=== PATIENT | female | born 1930 | race African-American/Black ===

== ENCOUNTER 2018-05-24 12:50 | Inpatient (IN) | payer MEDICARE ==
[2018-05-24 13:59] LABS: Hemoglobin 10.9 g/dL (12.0-16.0); Mean Corpuscular HGB CONC 30.3 g/dL (32.0-36.0); Mean Corpuscular Volume 69.3 fL (78.0-98.0); Mean Platelet Volume 8.6 fL (7.4-10.4); Platelet Count 656 thou/uL (130-400); RBC Distribution Width 16.4 % (11.5-14.5); Red Blood Cell (RBC) Count 5.22 mill/uL (4.20-5.40); White Blood Cell (WBC) Count 20.1 thou/uL (4.8-10.8)
[2018-05-24 14:21] LABS: ALT (SGPT) 13 U/L (8-55); AST (SGOT) 27 U/L (5-34); Albumin 2.7 g/dL (3.4-4.8); Alkaline Phosphatase 88 U/L (40-150); Anion Gap 14 mmol/L (10-20); BUN (Urea Nitrogen) 27 mg/dL (9.8-20.1); Bilirubin, Total 0.6 mg/dL (0.2-1.2); Calc. Creatinine Clearance 0 mL/min (70-130); Calcium 10.8 mg/dL (7.8-10.44); Carbon Dioxide 27 mmol/L (23-31); Chloride 105 mmol/L (98-107); Estimated GFR-MDRD 67; Globulin 5.8 g/dL (2.4-3.5); Glucose 103 mg/dL (83-110); Potassium 4.3 mmol/L (3.5-5.1); Protein, Total 8.5 g/dL (6.0-8.3); Sodium 142 mmol/L (136-145)
[2018-05-24 14:24] LABS: Anisocytosis SLIGHT = 6-15 cells (100X) (0-5/hpf); Band 2 % (5-11); Eosinophils 4 % (0-10); Hypochromia SLIGHT = 6-15 cells (100X) (0-5/hpf); Lymphocytes 28 % (21-51); MDiff Complete? YES; Microcytosis SLIGHT = 6-15 cells (100X) (0-5/hpf); Monocytes 12 % (0-10); Neutrophil 52 % (42-75); Ovalocytes SLIGHT = 2-5 cells (100X) (0-1/hpf); Platelet Morphology Comment Appears Increased; Polychromasia SLIGHT = 2-3 cells (100X) (0-2/hpf); Reactive Lymphocytes 1 % (0-10); Schistocytes SLIGHT = 2-5 cells (100X) (0-1/hpf); Target Cells SLIGHT = 2-5 cells (100X) (0-1/hpf)
--- NOTE | 2018-05-24 14:30 | RAD ---
CHEST ONE VIEW: Comparison: 08-21-14 History: Weakness, decreased appetite. FINDINGS: Slight elongation of the aorta. Normal cardiac silhouette. The pulmonary vessels and hilum are normal . Costophrenic angles are clear. Hyperinflation, with chronic changes. No masses or consolidation. No pneumothorax. Old posterior right 6th rib fracture. IMPRESSION: 1. Hyperinflation. Chronic changes. 2. No acute cardiopulmonary process. POS: [facility]
[2018-05-24 14:54] LABS: Bilirubin Negative (Negative); Blood, Urine Trace (Negative); Clarity TURBID (Clear); Glucose, Urine (Dipstick) Negative (Negative); Leukocyte Large (Negative); Nitrite Positive (Negative); Protein, Urine (Dipstick) 30 mg/dL (Neg-Trace); Specific Gravity, Urine 1.011 (1.002-1.036)
[2018-05-24 14:57] LABS: Bacteria/HPF 3+ HPF (None Seen); Hyaline Casts/LPF 0-3 HYALINE CAST LPF (0-3 Hyaline); Pathc Cast-AUWi Flag 1.01 (0-2.49); RBC/HPF 0-3 HPF (0-3); Squamous Epithelial 0-3 HPF (0-3); Yeast-AUWi Flag 7.4 (0-25.0)
[2018-05-24] MEDS ORDERED: cefTRIAXone\\ROCEPHIN 2 GM VIAL ONE (16:51)
[2018-05-24] MEDS ORDERED: HYDROcodone/Acetaminophen 5/325 mg Tablet PO PRN ×2 (19:38)
[2018-05-24] MEDS ORDERED: Ondansetron PF 4 MG/2 ML Vial IVP PRN (19:38)
[2018-05-24] MEDS ORDERED: Acetaminophen 325 MG TAB PO PRN (19:38)
[2018-05-24] MEDS ORDERED: Ondansetron ODT 4 MG TAB SL PRN (19:38)
[2018-05-24] MEDS ORDERED: Sodium Chloride 0.9% 1,000 ML IV SCH (19:38)
[2018-05-25] MEDS ORDERED: Acetaminophen 325 MG TAB PO PRN (10:07)
[2018-05-25] MEDS ORDERED: Acetaminophen 650 MG Suppository PR PRN (10:07)
[2018-05-25] MEDS: Sodium Chloride 0.9% 1,000 ML IV SCH (10:43)
--- NOTE | 2018-05-25 13:32 | HP ---
PRIMARY CARE PROVIDER: Dr. Burke Hung. CHIEF COMPLAINT: Generalized weakness. HISTORY OF PRESENT ILLNESS: Ms. Harrington is a pleasant 87-year-old lady, who was seen at [facility] on May 25, 2018. The patient is confused. She is unable to provide good history. I could not reach the patient's family member over the telephone. Collateral history was obtained from discussion with emergency room physician and review of medical records. She was reportedly driving 2 months ago. She was also reportedly seen at [facility] several times and admitted. She was also in rehab for a brief period of time during the last 2 months. She is currently with family members at home. She has been becoming progressively weaker and is now unable to even stand. The patient denies any complaints. REVIEW OF SYSTEMS: Could not be completed secondary to the patient's confused status. PAST MEDICAL HISTORY: COPD, asthma, emphysema, hypertension and dyslipidemia. PAST SURGICAL HISTORY: Unable to obtain. SOCIAL HISTORY: The patient denies current tobacco use, alcohol use, or recreational drug use. FAMILY HISTORY: Could not obtain. CODE STATUS: Could not obtain secondary to the patient's confused status. ALLERGIES: PENICILLIN, LISINOPRIL. CURRENT MEDICATIONS: 1. Pulmicort Flexhaler. 2. Furosemide 20 mg daily. 3. Potassium chloride 20 mEq daily. 4. Atorvastatin 20 mg daily. 5. Gabapentin 300 mg daily. 6. Latanoprost eye drops. 7. Lopressor 25 mg 2 times a day. 8. Mirtazapine 15 mg daily. PHYSICAL EXAMINATION: GENERAL: On examination, Ms. Harrington is awake and alert, not in acute distress. VITAL SIGNS: Blood pressure is 119/69, pulse 92, respiratory rate 18, and oxygen saturation 93% on room air. She is afebrile. EYES: No scleral icterus, no conjunctival pallor. ENT: Dry mucosal membranes, no oropharyngeal erythema or exudates. NECK: Supple, nontender, trachea is midline. RESPIRATORY: Accessory muscles of breathing are not active. Chest wall movements are symmetric bilaterally. Lungs are clear to auscultation without wheeze, rhonchi, or crepitations. CARDIOVASCULAR: S1 and S2 are heard, regular. Peripheral pulses palpable. No carotid bruit. No pericardial rub. ABDOMEN: Soft, nontender, bowel sounds are heard. NEUROLOGIC: Cranial nerves 2 through 12 are intact, deep tendon reflexes 2+. MUSCULOSKELETAL: Power is 5/5 in all four extremities. LYMPHATIC: No cervical lymphadenopathy. SKIN: No rashes or subcutaneous nodules. PSYCHIATRIC: Normal mood, the patient is oriented to self, not oriented to place or time. LABORATORY DATA: Ms. Harrington's labs and investigations were reviewed. I reviewed her electrocardiogram, which shows sinus tachycardia, no ST changes to suggest an acute coronary syndrome. I also reviewed her chest x-ray, which does not show any pulmonary infiltrates. She has leukocytosis with 20,100 white cells, of which 52% are neutrophils, 12% monocytes, elevated platelet count of 656,000, microcytic anemia with hemoglobin 10.9. Normal sodium, normal potassium, normal creatinine, elevated serum total protein of 8.5, decreased albumin of 2.7, elevated calcium of 10.8, and normal lactic acid. Urinalysis is positive for blood, nitrite, and large amount of leukocyte esterase. ASSESSMENT AND PLAN: Ms. Harrington is a pleasant 87-year-old lady, who was seen at [facility] on May 25, 2018. Her problem list includes: 1. Sepsis: Ms. aHrrington is presenting with sepsis. When she initially presented to the emergency room, she was tachycardic. She also has leukocytosis and suspected source of infection in the urinary tract. She will be admitted to the hospital for further management. 2. Urinary tract infection: She has received a dose of ceftriaxone and vancomycin. I will continue ceftriaxone and await urine cultures and blood cultures. 3. Generalized weakness: The patient is presenting with generalized weakness. We will request physical therapy evaluation. 4. Hypertension: We will resume home medications, monitor vital signs and titrate antihypertensives as needed. 5. Chronic obstructive pulmonary disease: Stable. 6. Dyslipidemia: We will continue statin. 7. Dehydration: The patient is clinically dehydrated. We will provide gentle hydration. Many thanks for allowing me to participate in your patient's care. Please feel free to contact me with any questions or concerns. LEVEL OF RISK: High. LEVEL OF COMPLEXITY: High. Job ID: [id number]
[2018-05-25] MEDS ORDERED: cefTRIAXone\\ROCEPHIN 1 GM in Sodium Chloride 0.9% 100 ML IVPB SCH (17:00)
[2018-05-25] MEDS: Metoprolol Tartrate 25 MG TAB PO SCH (20:34)
[2018-05-26] MEDS: Sodium Chloride 0.9% 1,000 ML IV SCH ×2 (06:42→23:44)
[2018-05-26] MEDS: Atorvastatin Calcium 20 MG TAB PO SCH (08:03)
[2018-05-26] MEDS: Gabapentin 300 MG CAP PO SCH (08:03)
[2018-05-26] MEDS: Mirtazapine 15 MG TAB PO SCH (08:03)
[2018-05-26] MEDS: Metoprolol Tartrate 25 MG TAB PO SCH ×2 (08:03→19:58)
[2018-05-26] MEDS: Latanoprost 0.005% Ophth Soln 2.5 ml Bottle EA EYE SCH (08:03)
[2018-05-26 09:14] LABS: #Eosinphils 0.5 thou/uL (0.0-0.7); #Lymphocytes 2.7 thou/uL (1.20-3.40); #Monocytes 1.6 thou/uL (0.11-0.59); #Neutrophils 9.2 thou/uL (1.40-6.50); %Basophils 0.3 % (0.0-1.0); %Eosinophils 3.7 % (0.0-10.0); %Lymphocytes 19.3 % (21.0-51.0); %Neutrophils 65.7 % (42.0-75.0); Hemoglobin 9.5 g/dL (12.0-16.0); Mean Corpuscular HGB CONC 30.1 g/dL (32.0-36.0); Mean Corpuscular Hemoglobin 20.7 pg (27.0-31.0); Mean Corpuscular Volume 68.6 fL (78.0-98.0); Mean Platelet Volume 8.2 fL (7.4-10.4); Platelet Count 551 thou/uL (130-400); RBC Distribution Width 16.2 % (11.5-14.5); Red Blood Cell (RBC) Count 4.59 mill/uL (4.20-5.40); White Blood Cell (WBC) Count 14.1 thou/uL (4.8-10.8)
[2018-05-26 09:22] LABS: Anion Gap 12 mmol/L (10-20); BUN (Urea Nitrogen) 14 mg/dL (9.8-20.1); Calc. Creatinine Clearance 0 mL/min (70-130); Calcium 9.5 mg/dL (7.8-10.44); Carbon Dioxide 23 mmol/L (23-31); Chloride 110 mmol/L (98-107); Estimated GFR-MDRD 90; Glucose 73 mg/dL (83-110); Potassium 3.6 mmol/L (3.5-5.1); Sodium 141 mmol/L (136-145)
--- NOTE | 2018-05-26 10:58 | PDOC.PN ---
- Subjective Encounter Start Date: 05/26/18 Encounter Start Time: 09:40 Pt seen for followup re: sepsis. says she feels well. - Objective MAR Reviewed: Yes Vital Signs & Weight: Vital Signs (12 hours) Temp Pulse Resp BP Pulse Ox 05/26/18 08:00 100 05/26/18 07:28 99.2 F 101 H 16 144/76 H 100 05/26/18 05:11 98.6 F 93 16 136/70 100 I&O: 05/25/18 05/26/18 05/27/18 06:59 06:59 06:59 Intake Total 720 240 Balance 720 240 Result Diagrams: 05/26/18 08:53 05/26/18 08:53 Additional Labs: labs reviewed by me Phys Exam - Physical Examination Constitutional: NAD HEENT: moist MMs, sclera anicteric, oral pharynx no lesions, 2+ tonsils Neck: no nodes, no JVD, supple, full ROM Respiratory: clear to auscultation bilateral Cardiovascular: RRR, no rub S1, S2 Gastrointestinal: soft, non-tender, no distention, positive bowel sounds Neurological: moves all 4 limbs Psychiatric: normal affect Deviation from normal: Oriented to person only, not to place or time Dx/Plan (1) Sepsis Code(s): A41.9 - SEPSIS, UNSPECIFIED ORGANISM Status: Acute Comment: secondary to UTI (2) UTI (urinary tract infection) Status: Acute Comment: E. coli resistant to ceftriaxone, switch to meropenem (3) HTN (hypertension) Code(s): I10 - ESSENTIAL (PRIMARY) HYPERTENSION Status: Chronic Comment: monitor vital signs, titrate antihypertensives as needed (4) COPD (chronic obstructive pulmonary disease) Status: Chronic Comment: stable - Plan * . Review of Systems - Review of Systems Constitutional: negative: fever, chills, sweats, weakness, malaise Respiratory: negative: Cough, Shortness of Breath, SOB with Excertion, Pleuritic Pain, Wheezing Cardiovascular: negative: chest pain, palpitations, orthopnea, paroxysmal nocturnal dyspnea, edema, light headedness Gastrointestinal: negative: Nausea, Vomiting, Abdominal Pain, Diarrhea, Constipation, Melena, Hematochezia Genitourinary: negative: Dysuria, Frequency, Incontinence, Hematuria, Retention Skin: negative: Rash, Lesions, Mack, Bruising - Medications/Allergies Allergies/Adverse Reactions: Allergies Allergy/AdvReac Type Severity Reaction Status Date / Time lisinopril Allergy Verified 05/24/18 19:59 penicillin G Allergy Verified 05/25/18 18:55 Penicillins Allergy Verified 05/24/18 19:59 Medications: Current Medications Acetaminophen (Tylenol) 650 mg PO Q4H PRN PRN Reason: Headache/Fever/Mild Pain (1-3) Acetaminophen (Tylenol) 650 mg NV Q4H PRN PRN Reason: Headache/Fever/Mild Pain (1-3) Atorvastatin Calcium (Lipitor) 20 mg PO DAILY [facility] Last Admin: 05/26/18 08:03 Dose: 20 mg Gabapentin (Neurontin) 300 mg PO DAILY [facility] Last Admin: 05/26/18 08:03 Dose: 300 mg Sodium Chloride (Normal Saline 0.9%) 1,000 mls @ 50 mls/hr IV .Q20H [facility] Last Admin: 05/26/18 06:42 Dose: 1,000 mls Meropenem 1 gm/ Sodium (Chloride) 100 mls @ 200 mls/hr IVPB Q8H [facility] Latanoprost (Xalatan 0.005% [facility] Sol) 1 drop EA EYE DAILY [facility] Last Admin: 05/26/18 08:03 Dose: 1 drop Metoprolol Tartrate (Lopressor) 25 mg PO BID [facility] Last Admin: 05/26/18 08:03 Dose: 25 mg Mirtazapine (Remeron) 15 mg PO DAILY [facility] Last Admin: 05/26/18 08:03 Dose: 15 mg Sodium Chloride (Flush - Normal Saline) 10 ml IVF Q12HR [facility] Last Admin: 05/26/18 08:05 Dose: Not Given Sodium Chloride (Flush - Normal Saline) 10 ml IVF PRN PRN PRN Reason: Saline Flush
[2018-05-26] MEDS ORDERED: Meropenem 1 GM in Sodium Chloride 0.9% 100 ML IVPB SCH (11:00)
[2018-05-26] MEDS: MEROPENEM 1 GM/50 ML 1 GM in Premix Bag 1 BAG IVPB SCH ×2 (11:48→18:03)
[2018-05-26 12:32] VITALS: BMI 19.0
[2018-05-27] MEDS: MEROPENEM 1 GM/50 ML 1 GM in Premix Bag 1 BAG IVPB SCH ×2 (02:12→11:26)
[2018-05-27] MEDS: Sodium Chloride 0.9% 1,000 ML IV SCH (02:12)
[2018-05-27 06:39] LABS: #Eosinphils 0.4 thou/uL (0.0-0.7); #Lymphocytes 2.8 thou/uL (1.20-3.40); #Monocytes 1.7 thou/uL (0.11-0.59); #Neutrophils 9.2 thou/uL (1.40-6.50); %Basophils 0.2 % (0.0-1.0); %Eosinophils 3.1 % (0.0-10.0); %Monocytes 11.9 % (0.0-10.0); %Neutrophils 64.8 % (42.0-75.0); Hemoglobin 9.5 g/dL (12.0-16.0); Mean Corpuscular HGB CONC 30.7 g/dL (32.0-36.0); Mean Corpuscular Hemoglobin 21.5 pg (27.0-31.0); Mean Corpuscular Volume 69.9 fL (78.0-98.0); Mean Platelet Volume 8.7 fL (7.4-10.4); Platelet Count 522 thou/uL (130-400); RBC Distribution Width 16.7 % (11.5-14.5); Red Blood Cell (RBC) Count 4.44 mill/uL (4.20-5.40); White Blood Cell (WBC) Count 14.2 thou/uL (4.8-10.8)
[2018-05-27 06:52] LABS: Anion Gap 14 mmol/L (10-20); BUN (Urea Nitrogen) 9 mg/dL (9.8-20.1); Calc. Creatinine Clearance 40 mL/min (70-130); Calcium 9.6 mg/dL (7.8-10.44); Carbon Dioxide 23 mmol/L (23-31); Chloride 108 mmol/L (98-107); Estimated GFR-MDRD Greater than 90; Glucose 69 mg/dL (83-110); Sodium 142 mmol/L (136-145)
[2018-05-27] MEDS: Latanoprost 0.005% Ophth Soln 2.5 ml Bottle EA EYE SCH (08:40)
[2018-05-27] MEDS: Furosemide 20 MG TAB PO SCH (08:41)
[2018-05-27] MEDS: Atorvastatin Calcium 20 MG TAB PO SCH (08:42)
[2018-05-27] MEDS: Metoprolol Tartrate 25 MG TAB PO SCH ×2 (08:42→20:05)
[2018-05-27] MEDS: Mirtazapine 15 MG TAB PO SCH (08:42)
[2018-05-27] MEDS: Gabapentin 300 MG CAP PO SCH (08:42)
--- NOTE | 2018-05-27 11:16 | PDOC.PN ---
- Subjective Encounter Start Date: 05/27/18 Encounter Start Time: 09:20 Pt seen for followup re: UTI. No complaints today. - Objective Vital Signs & Weight: Vital Signs (12 hours) Temp Pulse Resp BP Pulse Ox 05/27/18 07:25 97.5 F L 89 16 152/67 H 100 05/27/18 04:49 98.9 F 90 18 156/84 H 92 L 05/27/18 00:00 98.9 F 82 20 158/75 H 93 L Weight Admit Weight 97 lb 8 oz Weight 97 lb 8 oz I&O: 05/26/18 05/27/18 05/28/18 06:59 06:59 06:59 Intake Total 720 480 Balance 720 480 Result Diagrams: 05/27/18 05:41 05/27/18 05:41 Phys Exam - Physical Examination Constitutional: NAD HEENT: moist MMs Neck: supple Respiratory: clear to auscultation bilateral Cardiovascular: RRR Gastrointestinal: soft Neurological: moves all 4 limbs Psychiatric: normal affect Dx/Plan (1) UTI (urinary tract infection) Status: Acute Comment: Improving, switch to oral antibiotics (2) HTN (hypertension) Code(s): I10 - ESSENTIAL (PRIMARY) HYPERTENSION Status: Chronic Comment: BP still high, increase metoprolol to 37.5 mg PO BID (3) COPD (chronic obstructive pulmonary disease) Status: Chronic Comment: stable (4) Sepsis Code(s): A41.9 - SEPSIS, UNSPECIFIED ORGANISM Status: Resolved - Plan * . Review of Systems - Review of Systems Cardiovascular: negative: chest pain, palpitations, orthopnea, paroxysmal nocturnal dyspnea, edema, light headedness Gastrointestinal: negative: Nausea, Vomiting, Abdominal Pain, Diarrhea, Constipation, Melena, Hematochezia Genitourinary: negative: Dysuria, Frequency, Incontinence, Hematuria, Retention - Medications/Allergies Allergies/Adverse Reactions: Allergies Allergy/AdvReac Type Severity Reaction Status Date / Time lisinopril Allergy Verified 05/24/18 19:59 penicillin G Allergy Verified 05/25/18 18:55 Penicillins Allergy Verified 05/24/18 19:59 Medications: Current Medications Acetaminophen (Tylenol) 650 mg PO Q4H PRN PRN Reason: Headache/Fever/Mild Pain (1-3) Acetaminophen (Tylenol) 650 mg LA Q4H PRN PRN Reason: Headache/Fever/Mild Pain (1-3) Atorvastatin Calcium (Lipitor) 20 mg PO DAILY [facility] Last Admin: 05/27/18 08:42 Dose: 20 mg Furosemide (Lasix) 20 mg PO DAILY [facility] Last Admin: 05/27/18 08:41 Dose: 20 mg Gabapentin (Neurontin) 300 mg PO DAILY [facility] Last Admin: 05/27/18 08:42 Dose: 300 mg Sodium Chloride (Normal Saline 0.9%) 1,000 mls @ 50 mls/hr IV .Q20H [facility] Last Admin: 05/27/18 02:12 Dose: 1,000 mls Meropenem 1 gm/ Device 50 mls @ 100 mls/hr IVPB Q8H [facility] Last Admin: 05/27/18 02:12 Dose: 50 mls Latanoprost (Xalatan 0.005% [facility] Soln) 1 drop EA EYE DAILY [facility] Last Admin: 05/27/18 08:40 Dose: 1 drop Metoprolol Tartrate (Lopressor) 25 mg PO BID [facility] Last Admin: 05/27/18 08:42 Dose: 25 mg Mirtazapine (Remeron) 15 mg PO DAILY [facility] Last Admin: 05/27/18 08:42 Dose: 15 mg Sodium Chloride (Flush - Normal Saline) 10 ml IVF Q12HR [facility] Last Admin: 05/27/18 08:35 Dose: Not Given Sodium Chloride (Flush - Normal Saline) 10 ml IVF PRN PRN PRN Reason: Saline Flush
[2018-05-27] MEDS ORDERED: Metoprolol Tartrate 25 MG TAB PO SCH (11:45)
[2018-05-27] MEDS: Nitrofurantoin Monohyd/M-Cryst 100 MG CAP PO SCH (20:05)
[2018-05-28] MEDS: Sodium Chloride 0.9% 1,000 ML IV SCH (01:09)
[2018-05-28] MEDS: Metoprolol Tartrate 25 MG TAB PO SCH ×2 (08:45→20:30)
[2018-05-28] MEDS: Nitrofurantoin Monohyd/M-Cryst 100 MG CAP PO SCH ×3 (08:45→21:58)
[2018-05-28] MEDS: Atorvastatin Calcium 20 MG TAB PO SCH (08:46)
[2018-05-28] MEDS: Gabapentin 300 MG CAP PO SCH (08:46)
[2018-05-28] MEDS: Furosemide 20 MG TAB PO SCH (08:46)
[2018-05-28] MEDS: Mirtazapine 15 MG TAB PO SCH (08:46)
[2018-05-28] MEDS: Latanoprost 0.005% Ophth Soln 2.5 ml Bottle EA EYE SCH (08:47)
[2018-05-28 09:13] LABS: #Eosinphils 0.5 thou/uL (0.0-0.7); #Lymphocytes 3.6 thou/uL (1.20-3.40); #Monocytes 1.9 thou/uL (0.11-0.59); %Basophils 0.3 % (0.0-1.0); %Eosinophils 3.5 % (0.0-10.0); %Lymphocytes 25.4 % (21.0-51.0); %Monocytes 13.4 % (0.0-10.0); %Neutrophils 57.4 % (42.0-75.0); Hemoglobin 11.8 g/dL (12.0-16.0); Hypochromia MODERATE=16-30 cells (100X) (0-5/hpf); MDiff Complete? YES; Mean Corpuscular HGB CONC 30.2 g/dL (32.0-36.0); Mean Corpuscular Hemoglobin 20.7 pg (27.0-31.0); Mean Corpuscular Volume 68.5 fL (78.0-98.0); Mean Platelet Volume 9.6 fL (7.4-10.4); Microcytosis MODERATE=15-30 cells (100X) (0-5/hpf); Platelet Count 393 thou/uL (130-400); Platelet Morphology Comment Appears Adequate; Polychromasia SLIGHT = 2-3 cells (100X) (0-2/hpf); RBC Distribution Width 17.1 % (11.5-14.5); Red Blood Cell (RBC) Count 5.69 mill/uL (4.20-5.40); Target Cells SLIGHT = 2-5 cells (100X) (0-1/hpf)
--- NOTE | 2018-05-28 10:25 | PDOC.PN ---
- Subjective Encounter Start Date: 05/28/18 Encounter Start Time: 10:29 Says she is doing fine. No complaints. Feels at her baseline. - Objective Vital Signs & Weight: Vital Signs (12 hours) Temp Pulse Resp BP Pulse Ox 05/28/18 07:49 98.0 F 84 16 161/83 H 94 L 05/28/18 00:33 97.7 F Weight Admit Weight 97 lb 8 oz Weight 97 lb 8 oz I&O: 05/27/18 05/28/18 05/29/18 06:59 06:59 06:59 Intake Total 480 Balance 480 Result Diagrams: 05/28/18 07:25 05/27/18 05:41 Additional Labs: Accuchecks 05/27/18 05/27/18 16:51 11:28 POC Glucose 80 118 H Phys Exam - Physical Examination Constitutional: NAD Respiratory: no wheezing, no rales, clear to auscultation bilateral Cardiovascular: RRR, no significant murmur, no rub Gastrointestinal: soft, non-tender, no distention, positive bowel sounds Musculoskeletal: no edema muscular atrophy of LE's Deviation from normal: flat affect. Dx/Plan (1) E. coli infection Status: Acute (2) UTI (urinary tract infection) Status: Acute Comment: Improving, switch to oral antibiotics (3) COPD (chronic obstructive pulmonary disease) Status: Chronic Comment: stable (4) HTN (hypertension) Code(s): I10 - ESSENTIAL (PRIMARY) HYPERTENSION Status: Chronic Comment: BP still high, increase metoprolol to 37.5 mg PO BID (5) Sepsis Code(s): A41.9 - SEPSIS, UNSPECIFIED ORGANISM Status: Resolved - Plan * Feels like she is at her baseline. * Has MDR E. coli. * Resume meropenem and consult ID. * Likely ready for DC when treatment plan in place.
[2018-05-28 10:36] LABS: Anion Gap 15 mmol/L (10-20); BUN (Urea Nitrogen) 9 mg/dL (9.8-20.1); Calc. Creatinine Clearance 38 mL/min (70-130); Calcium 9.2 mg/dL (7.8-10.44); Carbon Dioxide 24 mmol/L (23-31); Chloride 105 mmol/L (98-107); Estimated GFR-MDRD 89; Glucose 104 mg/dL (83-110); Potassium 4.7 mmol/L (3.5-5.1); Sodium 139 mmol/L (136-145)
[2018-05-28] MEDS: MEROPENEM 1 GM/50 ML 1 GM in Premix Bag 1 BAG IVPB SCH ×2 (11:54→20:29)
[2018-05-28] MEDS ORDERED: Meropenem 1 GM in Sodium Chloride 0.9% 100 ML IVPB SCH (12:00)
--- NOTE | 2018-05-28 16:36 | CON ---
DATE OF CONSULTATION: 05/28/2018 REASON FOR CONSULTATION: Possible UTI. HISTORY OF PRESENT ILLNESS: An 87-year-old patient, who has a history of COPD, hypertension, and developed weakness and confusional state. She was brought to the hospital as part of the workup. Urinalysis and urine culture were abnormal. The patient has been started on antimicrobial therapy. She also did have white cell count elevation identified. Review of her records at [facility] in conversation with her niece, it became apparent that the patient has had rapidly progressive cognitive dysfunction with persistent headaches over the past many months. She also has had chronic neutrophilia for the past many years going as far back as 2011 per records at [facility]. The patient had a recent fracture in left upper extremity at the radius level and had a highly positive rheumatoid factor titer and apparently one of the doctors told her that she had arthritis "all over." There have been no reports of urinary symptoms; although, the patient's cognitive function hindered that assessment. At the moment of the evaluation, the patient is awake, but she is disoriented except for self and the subjective report was very limited in its accuracy due to her cognitive issues. PAST MEDICAL HISTORY: Includes COPD, hypertension, dyslipidemia, previous left radius fracture. In multiple records, it stated that the patient has CKD stage 3, but this does not appear to be the case. There has been markedly elevated rheumatoid factor checked about 2 years ago. SOCIAL HISTORY: Former smoker and she was living with her niece in [facility]. FAMILY HISTORY: Not contributory. ALLERGIES: PENICILLIN AND LISINOPRIL WITH ANGIOEDEMA. CURRENT MEDICATIONS: 1. P.r.n. medications. 2. Lipitor. 3. Lasix. 4. Neurontin. 5. Meropenem. 6. Lopressor. 7. Macrobid. PHYSICAL EXAMINATION: VITAL SIGNS: T-max 99.4, blood pressure 160/83, pulse 84, respirations 16, and O2 saturation 94% to 95%. SKIN: No areas of skin breakdown. GENERAL: The patient has a peripheral IV access and she is voiding in the diaper. A little bit of alopecia. HEENT: The patient has no lymphadenopathy. There is evidence of temporal wasting. Ocular movements are conjugate. The right pupil is ovoid in shape, but no inflammatory changes. Left pupil is normal. Oral cavity with upper and lower artificial dentures. No oral cavity lesions. NECK: Supple. No jugular vein distention or carotid bruits. LUNGS: Symmetric air entry with a few rhonchi at the bases. HEART: S1 and S2. Regular rate. ABDOMEN: Soft, not distended. No ascites. No bladder distention. No organomegaly. No tenderness. EXTREMITIES: She has pain on palpation of all 4 appendicular structures. This pain seems to be localized to the skin of the arms and legs as well as the joints. Some joint deformities are noted. Pulses are 1+ in dorsalis pedis. Plantar responses are flexor. No clonus. NEUROLOGIC: She is awake. She knows her name, but that is the extent of her ability to answer questions. She did recall some of things about her long distant past, but recent recall is very limited. LABORATORY DATA: White cell count 20,000, now is 14,000, hemoglobin ranged from 10 to 11, MCV is 68, and platelets was 656, now is 393. Differential showed 52% neutrophils, 2% bands, and 12% monocytes. Creatinine 0.74. ALT was 27, total bilirubin 0.6, calcium 9.6, alkaline phosphatase 88, albumin 2.7, and globulin 5.8. DIAGNOSTIC DATA: There is a chest x-ray with hyperinflation and chronic changes. ASSESSMENT: 1. Hypertension. 2. Progressive cognitive impairment over the past few months associated with functional impairment. 3. Polyarthralgias. 4. Elevated rheumatoid factor in the recent past. 5. Chronic headaches. 6. 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 7. Abnormal urinalysis with positive urine culture. DISCUSSION: The differential diagnosis includes rapidly progressive organic brain syndrome, for example, a chronic form of meningitis or chronic encephalitis associated with certain pathogens such as Treponema pallidum or Cryptococcus neoformans. A form of rapidly progressive degenerative disease including Alzheimer's, frontotemporal dementia. 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 She seems to be taking chronic corticosteroids reportedly and that can also be associated with elevation in the neutrophil count, but I believe in her case this is more likely to represent an underlying inflammatory process. Finally, vasculitides including giant cell arteritis with temporal arteritis needs to be considered in view of the chronic headaches, micronutrient/cofactor deficiencies including vitamin B12, thiamine need to be ruled out. We will check MRI of the head, CSF evaluation, micronutrient evaluation, repeat rheumatoid factor. I do not believe that the urinary tract findings are primarily the reason for the patient's clinical deterioration. Job ID: [id number]
--- NOTE | 2018-05-28 17:00 | MRI ---
PRE AND POSTCONTRAST ENHANCED MRI IMAGES OF THE BRAIN: 05/28/18 HISTORY: Chronic headaches, rapidly progressive, cognitive weakness and decreased appetite. Multiplanar and multisequence pre and postcontrast enhanced MRI images of the brain demonstrate diffu se cortical atrophy and deep white matter ischemic changes. Prominent Virchow-Collins spaces are presen t. No abnormal areas of intracranial enhancement seen. Normal flow voids seen in the major intracranial vessels. Small amount of bilateral mastoid fluid is present. IMPRESSION: Cortical atrophy and deep white matter ischemic changes. No acute intracranial abnormality seen. POS: [facility]
[2018-05-28 17:14] LABS: CSF Source CSF; Clarity Clear (Clear); Tube # 4; WBC/NonHematics Count - Manual 3 /cumm (0-5)
[2018-05-28 17:15] LABS: RBC Count - Manual 2 /cumm (None Seen)
--- NOTE | 2018-05-28 18:09 | RAD ---
ARTHROSCOPICALLY GUIDED LUMBAR PUNCTURE 05/28/18 HISTORY: Rapidly progressive cognitive impairment. Headaches. EXAM: Fluoroscopically guided lumbar puncture. RADIATION DOSIMETRY: 0.4 minutes of fluoroscopy and DAP of 108 uGy*m2. Informed consent was obtained per order of Dr. Christianson. The right L2-3 interlaminar space was localized using fluoroscopic guidance. Using fluoroscopic guidance, the skin surface was localized. The overly ing skin was prepped and draped in the usual sterile manner. A 1% lidocaine solution was used to anes thetize the overlying soft tissues. A 22 gauge spinal needle was placed into the subarachnoid space. A total of 12 mL of clear CSF was removed without difficulty. IMPRESSION: Successful fluoroscopically guided lumbar puncture. POS: [facility]
[2018-05-29] MEDS: MEROPENEM 1 GM/50 ML 1 GM in Premix Bag 1 BAG IVPB SCH ×3 (03:12→20:09)
[2018-05-29] MEDS: Gabapentin 300 MG CAP PO SCH (08:31)
[2018-05-29] MEDS: Atorvastatin Calcium 20 MG TAB PO SCH (08:31)
[2018-05-29] MEDS: Furosemide 20 MG TAB PO SCH (08:31)
[2018-05-29] MEDS: Latanoprost 0.005% Ophth Soln 2.5 ml Bottle EA EYE SCH (08:32)
[2018-05-29] MEDS: Metoprolol Tartrate 25 MG TAB PO SCH ×2 (08:32→20:09)
[2018-05-29] MEDS: Mirtazapine 15 MG TAB PO SCH (08:33)
[2018-05-29] MEDS: Nitrofurantoin Monohyd/M-Cryst 100 MG CAP PO SCH ×2 (08:34→20:10)
[2018-05-29] MEDS ORDERED: Gadobenate Dimeglumine 529 MG/1 ML (20ML VIAL) ONE (10:07)
[2018-05-29] MEDS ORDERED: Enoxaparin Sodium 30 MG/0.3 ML SYRINGE SC SCH (10:45)
[2018-05-29] MEDS: Sodium Chloride 0.9% 1,000 ML IV SCH (10:58)
--- NOTE | 2018-05-29 23:22 | PDOC.PN ---
- Subjective Encounter Start Date: 05/30/18 Encounter Start Time: 10:35 Denies complaints. Feels at he baseline. - Objective Vital Signs & Weight: Vital Signs (12 hours) Temp Pulse Resp BP Pulse Ox 05/29/18 20:00 97.9 F 84 16 138/80 92 L Weight Admit Weight 97 lb 8 oz Weight 97 lb 8 oz I&O: 05/28/18 05/29/18 05/30/18 06:59 06:59 06:59 Intake Total 580 460 Balance 580 460 Result Diagrams: 05/28/18 07:25 05/28/18 09:50 Phys Exam - Physical Examination Constitutional: NAD Awake and conversant. Respiratory: no wheezing, no rales, no rhonchi, clear to auscultation bilateral Cardiovascular: RRR, no significant murmur Gastrointestinal: soft, non-tender, no distention, positive bowel sounds Musculoskeletal: no edema Appears a little confused. Psychiatric: normal affect Dx/Plan (1) E. coli infection Status: Acute (2) UTI (urinary tract infection) Status: Acute Comment: Improving, switch to oral antibiotics (3) COPD (chronic obstructive pulmonary disease) Status: Chronic Comment: stable (4) HTN (hypertension) Code(s): I10 - ESSENTIAL (PRIMARY) HYPERTENSION Status: Chronic Comment: BP still high, increase metoprolol to 37.5 mg PO BID (5) Sepsis Code(s): A41.9 - SEPSIS, UNSPECIFIED ORGANISM Status: Resolved - Plan * Dr. Christianson initiated workup for possible sources of her gen decline. * Does not believe the UTI's are contrib. * Will await results of work up and discuss with him further today.
--- NOTE | 2018-05-30 00:40 | HP ---
SUBJECTIVE: Ms. Harrington is about the same. She is somewhat apathetic, disoriented except for self, less tenderness on mobility of all mobilization of her appendicular structures. The review of systems is of limited reliability. OBJECTIVE: VITAL SIGNS: T-max 99.5, blood pressure 130/67, pulse 89. HEENT: Ocular movements conjugate. Oral cavity moist. LUNGS: Symmetric air entry. HEART: S1 and S2, regular rate. ABDOMEN: Soft, not distended. No bladder distention. EXTREMITIES: Some joint pains on mobilization for extremities. LABORATORY DATA: White cell count 14.0, hemoglobin 11, platelets 393. Vitamin B12 of 896. Creatinine 0.75. CSF showed 3 wbc's. Cryptococcus antigen was negative. Brain MRI with cortical atrophy, deep white matter ischemic changes. ASSESSMENT: Hypertension, progressive cognitive impairment in the past few months associated with functional impairment, polyarthralgias with elevated rheumatoid factor and neutrophilia, which is a chronic finding. She also has abnormal urinalysis. DISCUSSION: The patient has vascular dementia, most likely is the reason for cognitive dysfunction. She must have some polyarticular inflammatory process, either rheumatoid arthritis or crystal induced arthropathy. I think that she received enough treatment for the urinary tract abnormalities. I am not exactly sure that those are clinically meaningful at this point in time, but she has already been treated for cystitis, and I do not think she would have anything more than that at this point in time. She will continue to display the decline in her cognitive function, will likely to eventually need fdc placement. Job ID: [id number]
[2018-05-30] MEDS: MEROPENEM 1 GM/50 ML 1 GM in Premix Bag 1 BAG IVPB SCH ×3 (04:24→20:08)
[2018-05-30] MEDS: Sodium Chloride 0.9% 1,000 ML IV SCH (08:13)
[2018-05-30] MEDS: Furosemide 20 MG TAB PO SCH (08:14)
[2018-05-30] MEDS: Atorvastatin Calcium 20 MG TAB PO SCH (08:14)
[2018-05-30] MEDS: Enoxaparin Sodium 30 MG/0.3 ML SYRINGE SC SCH (08:14)
[2018-05-30] MEDS: Gabapentin 300 MG CAP PO SCH (08:15)
[2018-05-30] MEDS: Latanoprost 0.005% Ophth Soln 2.5 ml Bottle EA EYE SCH (08:15)
[2018-05-30] MEDS: Metoprolol Tartrate 25 MG TAB PO SCH ×2 (08:18→20:08)
[2018-05-30] MEDS: Mirtazapine 15 MG TAB PO SCH (08:19)
[2018-05-30] MEDS: Nitrofurantoin Monohyd/M-Cryst 100 MG CAP PO SCH ×2 (08:19→20:08)
[2018-05-30 09:46] LABS: Syphilis Antibody Nonreactive (Nonreactive); Syphilis Antibody Index 0.18 S/CO (<1.00 Non-Reactive)
[2018-05-31] MEDS: MEROPENEM 1 GM/50 ML 1 GM in Premix Bag 1 BAG IVPB SCH ×2 (03:36→11:42)
[2018-05-31] MEDS: Sodium Chloride 0.9% 1,000 ML IV SCH (03:37)
[2018-05-31 07:37] LABS: #Eosinphils 0.3 thou/uL (0.0-0.7); #Lymphocytes 2.6 thou/uL (1.20-3.40); #Monocytes 1.3 thou/uL (0.11-0.59); #Neutrophils 4.8 thou/uL (1.40-6.50); %Basophils 0.5 % (0.0-1.0); %Eosinophils 3.2 % (0.0-10.0); %Lymphocytes 28.3 % (21.0-51.0); %Monocytes 14.5 % (0.0-10.0); %Neutrophils 53.6 % (42.0-75.0); Mean Corpuscular HGB CONC 30.4 g/dL (32.0-36.0); Mean Corpuscular Hemoglobin 20.6 pg (27.0-31.0); Mean Corpuscular Volume 67.8 fL (78.0-98.0); Mean Platelet Volume 9.1 fL (7.4-10.4); Platelet Count 411 thou/uL (130-400); RBC Distribution Width 16.9 % (11.5-14.5); Red Blood Cell (RBC) Count 4.85 mill/uL (4.20-5.40)
[2018-05-31 07:54] LABS: Anion Gap 15 mmol/L (10-20); BUN (Urea Nitrogen) 10 mg/dL (9.8-20.1); Calc. Creatinine Clearance 43 mL/min (70-130); Carbon Dioxide 25 mmol/L (23-31); Chloride 104 mmol/L (98-107); Estimated GFR-MDRD Greater than 90; Glucose 77 mg/dL (83-110); Sodium 141 mmol/L (136-145)
[2018-05-31 07:58] LABS: Potassium 2.8 mmol/L (3.5-5.1)
--- NOTE | 2018-05-31 08:35 | PDOC.PN ---
- Subjective Encounter Start Date: 05/30/18 Encounter Start Time: 10:50 Patient doing well. NO complaints. Granddaughter present as well. Plan is for patient to go to grand-niece's home. - Objective Vital Signs & Weight: Vital Signs (12 hours) Temp Pulse Resp BP Pulse Ox 05/31/18 07:51 98.9 F 92 18 150/73 H 93 L Weight Admit Weight 97 lb 8 oz Weight 97 lb 8 oz I&O: 05/30/18 05/31/18 06/01/18 06:59 06:59 06:59 Intake Total 1035 809 Balance 1035 809 Result Diagrams: 05/31/18 07:09 05/31/18 07:09 Phys Exam - Physical Examination Constitutional: NAD Awake and conversational Respiratory: no wheezing, no rales, no rhonchi Cardiovascular: RRR, no significant murmur Gastrointestinal: soft, non-tender, no distention, positive bowel sounds Musculoskeletal: no edema Psychiatric: normal affect Dx/Plan (1) E. coli infection Status: Acute (2) UTI (urinary tract infection) Status: Acute Comment: Improving, switch to oral antibiotics (3) COPD (chronic obstructive pulmonary disease) Status: Chronic Comment: stable (4) HTN (hypertension) Code(s): I10 - ESSENTIAL (PRIMARY) HYPERTENSION Status: Chronic Comment: BP still high, increase metoprolol to 37.5 mg PO BID (5) Sepsis Code(s): A41.9 - SEPSIS, UNSPECIFIED ORGANISM Status: Resolved - Plan * Discussed with Dr. Christianson. No further treatment of UTI indicated. * Suspects some type of musculoskeletal/rheum issues that are low grade and chronic. * Discussed with patient and her Granddaughter. Likely has some vascular dementia that may progress. * OK to discharge in am as that is when family can get her.
[2018-05-31] MEDS ORDERED: Potassium Chloride 20 MEQ TAB PO SCH (08:45)
[2018-05-31] MEDS: Gabapentin 300 MG CAP PO SCH (08:50)
[2018-05-31] MEDS: Nitrofurantoin Monohyd/M-Cryst 100 MG CAP PO SCH (08:51)
[2018-05-31] MEDS: Atorvastatin Calcium 20 MG TAB PO SCH (08:51)
[2018-05-31] MEDS: Mirtazapine 15 MG TAB PO SCH (08:52)
[2018-05-31] MEDS: Metoprolol Tartrate 25 MG TAB PO SCH (08:52)
[2018-05-31] MEDS: Latanoprost 0.005% Ophth Soln 2.5 ml Bottle EA EYE SCH (08:53)
[2018-05-31] MEDS: Furosemide 20 MG TAB PO SCH (08:53)
[2018-05-31] MEDS: Enoxaparin Sodium 30 MG/0.3 ML SYRINGE SC SCH (08:54)
[2018-05-31 16:17] VITALS: BP 138/70; TEMP 99.4
[2018-06-01 16:06] LABS: ANA Symphony (Qualitative) Negative (Negative); ANA Symphony (Quantitative) 0.1 Ratio (< 0.7 Negative); dsDNA IgG Antibody 3.6 IU/mL (<10 Negative)
[2018-06-01 16:55] LABS: CCP IgG Antibody Greater than 340.0 EliAU/mL (<7 Negative); EliA RAS New Method **** NEW METHOD ****; Rheumatoid Factor IgM Antibody Greater than 200.0 IU/mL (<3.5 Negative)
== END 2018-05-31 16:39 | disposition home health service (06) | DRG 872 ==
LOC: ERS 12:50 → T4-B 18:46
PROVIDERS: ADMIT Internal Medicine; ATTEND Internal Medicine
PROC: 009U3ZX Drainage of Spinal Canal, Percutaneous Approach, Diagnostic (ICD-10-PCS; principal; 2018-05-28)
PROC: B01B1ZZ Fluoroscopy of Spinal Cord using Low Osmolar Contrast (ICD-10-PCS; 2018-05-28)
DX: A41.9 Sepsis, unspecified organism (principal); N39.0 Urinary tract infection, site not specified; F01.50 Vascular dementia, unspecified severity, without behavioral disturbance, psychotic disturbance, mood disturbance, and anxiety; J44.9 Chronic obstructive pulmonary disease, unspecified; I10 Essential (primary) hypertension; E78.5 Hyperlipidemia, unspecified; E86.0 Dehydration; B96.20 Unspecified Escherichia coli [E. coli] as the cause of diseases classified elsewhere; M25.50 Pain in unspecified joint; Z88.0 Allergy status to penicillin; Z88.8 Allergy status to other drugs, medicaments and biological substances; Z87.891 Personal history of nicotine dependence
CPT/HCPCS: 36415; 36416; 51701; 62270; 70553; 71045; 80048; 80053; 81003; 81015; 82607; 82945; 83520; 83605; 84157; 84425; 85025; 86038; 86200; 86225; 86780; 87040; 87077; 87086; 87186; 87899; 89051; 93005; 96361; 96365; A4353; A9577; J0696; J1650; J2185; J3370; J7050